=== PATIENT | female | born 1990 | race Two or more races ===

== ENCOUNTER 2020-03-26 21:32 | Emergency (ER) | payer MEDICAID, OTHER ==
[~2020-03-26] VITALS: Ht 170.2 cm; Wt 65.8 kg
--- NOTE | 2020-03-26 21:45 | NUR ---
ED Nurse Note: Patient walked in from home d/t spider bite on left ankle that occurred 3 days ago. Patient aao x 4 and ambulatory with steady gait. Patient reports tingling on left side. No acute distress noted.
--- NOTE | 2020-03-26 22:02 | NUR ---
ED Nurse Note: ERMD at bedside.
--- NOTE | 2020-03-26 22:05 | NUR ---
HAND-OFF: Report given to DEV Kennedy.
[2020-03-26] MEDS ORDERED: Clindamycin 600mg 50 ML IVPB ONE (22:15)
--- NOTE | 2020-03-26 22:15 | NUR ---
ED Nurse Note: IV started in LAC, abx running per ERMD orders
[2020-03-26] MEDS ORDERED: CEPHALEXIN500 MG ORAL (22:56)
[2020-03-26] MEDS ORDERED: BACTRIM DS TAB1 EAC1 ORAL (22:56)
[2020-03-26] MEDS ORDERED: Lidocaine 1% MPF 10mg/ml 5ml ONE (22:57)
--- NOTE | 2020-03-26 22:57 | Emergency Room Report ---
History of Present Illness General Chief Complaint: Lower Extremity Injury Source: Patient Present Illness HPI This a 29-year-old female with no past medical history. She presents with 2 complaints. Her main complaint was possible bug bite to her left ankle. She noticed some itching and redness that seem to be spreading for the last 2 days. No fever chills but no nausea no vomiting but did not see anything biting her. Localized in the left lateral ankle. Worse with movement. Better with rest. Her second complaint is possible STD. This complaint was verbalized as I was discharging her. She said she has a slight discharge after "looking up" with a josé luis she knew a month ago. She said she had chlamydia from him before. She denies any nausea vomiting. Denies any fever chills. Said is similar to previous chlamydia infection. Allergies: Coded Allergies: No Known Allergies (Unverified , 03/26/20) COVID-19 Screening Contact w/high risk pt: No Recent Travel to affected area: No Experienced COVID-19 symptoms?: No Patient History Past Medical History: none, see triage record, old chart reviewed Past Surgical History: none Pertinent Family History: none Social History: Denies: smoking Last Menstrual Period: 03/18/20 Now: No : 1 Para: 1 Immunizations: other Reviewed Nursing Documentation: PMH: Agreed; PSxH: Agreed Nursing Documentation-PMH Past Medical History: No Stated History Review of Systems Eye: Denies: eye pain, blurred vision ENT: Denies: ear pain, nose congestion, throat swelling Respiratory: Denies: cough, shortness of breath Cardiovascular: Denies: chest pain, palpitations Gastrointestinal: Denies: abdominal pain, diarrhea, nausea, vomiting Genitourinary: Reports: vag bleed/dc Musculoskeletal: Denies: back pain, joint pain Skin: Reports: rash Neurological: Denies: headache, numbness Endocrine: Denies: increased thirst, increased urine Hematologic/Lymphatic: Denies: easy bruising All Other Systems: negative except mentioned in HPI Physical Exam Vital Signs Date Time Temp Pulse Resp B/P (MAP) Pulse Ox O2 Delivery O2 Flow Rate FiO2 03/26/20 21:37 97.9 77 20 104/62 (76) 99 Room Air Vitals normal Sp02 EP Interpretation: reviewed, normal General Appearance: well appearing, no apparent distress, alert Head: normocephalic, atraumatic Eyes: bilateral eye PERRL, bilateral eye EOMI ENT: hearing grossly normal, normal pharynx Neck: full range of motion, supple, no meningismus Respiratory: chest non-tender, lungs clear, normal breath sounds Cardiovascular #1: regular rate, rhythm, no murmur Gastrointestinal: normal bowel sounds, non tender, no mass, no organomegaly, no bruit, non-distended Musculoskeletal: back normal, normal range of motion, gait/station normal, other - Left lateral ankle with about 4 x 4 cm area of erythema. No crepitance. Full range of motion of the ankle. No fluctuant. Psychiatric: mood/affect normal Medical Decision Making Diagnostic Impression: Primary Impression: Cellulitis of left ankle Additional Impression: Acute cervicitis ER Course Patient with cellulitis of her left ankle. No evidence of necrotizing fasciitis or abscess. Antibiotics given here. She also has possible STD. Cover for gonorrhea and chlamydia. Recommend outpatient testing for HIV, hepatitis, syphilis and other STDs. Last Vital Signs Date Time Temp Pulse Resp B/P (MAP) Pulse Ox O2 Delivery O2 Flow Rate FiO2 03/26/20 21:37 97.9 77 20 104/62 (76) 99 Room Air Status: improved Disposition: HOME, SELF-CARE Condition: Stable Scripts Cephalexin* (KEFLEX*) 500 Mg Capsule 500 MG ORAL TID, #21 CAP Prov: Riccardo Pabon MD 03/26/20 Trimethoprim/Sulfamethoxazole 160/800* (BACTRIM DS TABLET*) 1 Each Tablet 1 TAB ORAL Q12H, #14 TAB 0 Refills Prov: Riccardo Pabon MD 03/26/20 Referrals: NOT CHOSEN IPA/,REFERRING (PCP) Additional Instructions: Follow-up with your doctor in 7 days for recheck. Return if redness increases significantly, having fever, or increasing swelling. Recommend outpatient testing for HIV, hepatitis, syphilis and other STDs. Recommend having your partner treated also. Return if symptoms worsen. Riccardo Pabon MD March 26, 2020 22:57
[2020-03-26] MEDS ORDERED: Azithromycin 250mg tab ORAL ONE (23:00)
[2020-03-26 23:06] VITALS: BP 104/62
--- NOTE | 2020-03-26 23:06 | NUR ---
ER DISCHARGE NOTE: Patient is cleared to be discharged per ERMD, pt is aox4, on room air, with stable vital signs. pt was given dc and prescription instructions, pt was able to verbalize understanding, pt id band and iv site removed without complications. pt is able to ambulate with steady gait. pt took all belongings.
== END 2020-03-26 23:06 | disposition home or self-care (01) ==
LOC: EMR 21:55
DX: L03.116 Cellulitis of left lower limb (principal); N72 Inflammatory disease of cervix uteri
CPT/HCPCS: 96365; 96375; J0696; Q0144; Z7502; 99284; S0077

== ENCOUNTER 2020-04-25 19:49 | Emergency (ER) | payer OTHER ==
[~2020-04-25] VITALS: Ht 170.2 cm; Wt 63.5 kg
[~2020-04-25 19:49] MED LIST: BACTRIM DS TAB1 EAC1 ORAL; CEPHALEXIN500 MG ORAL
[2020-04-25 20:38] VITALS: BP 111/72
--- NOTE | 2020-04-25 21:30 | Emergency Room Report ---
History of Present Illness General Chief Complaint: Lower Extremity Injury Source: Patient (Guzman oG M.D.) Present Illness HPI 29-year-old female presents with left lower extremity pain and swelling. She is noted pain and swelling for the past couple of days. She was seen 1 month ago for the same, diagnosed with cellulitis, started on Keflex and Bactrim which did improve her symptoms however now they have returned. No fevers nausea or vomiting. Pain is 8 out of 10 aching in nature, nonradiating. (Guzman Go M.D.) Allergies: Coded Allergies: No Known Allergies (Unverified , 03/26/20) COVID-19 Screening Contact w/high risk pt: No Recent Travel to affected area: No Experienced COVID-19 symptoms?: No COVID-19 Testing performed PROBATION OFFICER: No (Guzman Go M.D.) Patient History Last Menstrual Period: 04/25/20 Now: No : 1 Para: 1 Reviewed Nursing Documentation: PMH: Agreed; PSxH: Agreed (Guzman Go M.D.) Nursing Documentation-PMH Past Medical History: No Stated History (Guzman Go M.D.) Review of Systems All Other Systems: negative except mentioned in HPI (Guzman Go M.D.) Physical Exam Vital Signs Date Time Temp Pulse Resp B/P (MAP) Pulse Ox O2 Delivery O2 Flow Rate FiO2 04/25/20 20:28 98.6 76 18 111/72 (85) 98 Room Air Sp02 EP Interpretation: reviewed, normal General Appearance: well appearing, no apparent distress Head: normocephalic, atraumatic Eyes: bilateral eye PERRL, bilateral eye EOMI ENT: hearing grossly normal, moist mucus membranes Neck: full range of motion, supple Respiratory: lungs clear, normal breath sounds, no rhonchi, no respiratory distress, no retraction, no wheezing Cardiovascular #1: normal peripheral pulses, regular rate, rhythm, no murmur Gastrointestinal: non tender, soft, non-distended, no guarding Musculoskeletal: other - Left lower extremity with swelling and erythema noted , 2+ pulses palpated, mildly tender, no deformity noted. No purulence. Mild calf tenderness on left Neurologic: alert, oriented x3, no focal defects Skin: normal color, warm/dry (Guzman Go M.D.) Medical Decision Making Diagnostic Impression: Primary Impression: Cellulitis Qualified Codes: L03.119 - Cellulitis of unspecified part of limb ER Course MDM: Differential included but not limited to recurrent cellulitis, DVT, dependent edema to name a few Clinical course-ultrasound ordered to evaluate for DVT. Patient's exam did appear to have mild cellulitis. She was treated successfully with Keflex and Bactrim previously. She does not take control no recent long travel however due to recurrent swelling and pain I did order the ultrasound. Labs - On reevaluation: Plan- (Guzman Go M.D.) ER Course Patient signed out to me. She presents with cellulitis of her lower extremity. She had an ultrasound pending to make sure there is no DVT. Ultrasound is negative. Patient be discharged home per Dr. Go's instructions. (Riccardo Pabon MD) CT/MRI/US Diagnostic Results CT/MRI/US Diagnostic Results : Imaging Test Ordered: Ultrasound left lower extremity Impression Per telemarketing sales representative neg. (Riccardo Pabon MD) Last Vital Signs Date Time Temp Pulse Resp B/P (MAP) Pulse Ox O2 Delivery O2 Flow Rate FiO2 04/25/20 20:28 98.6 76 18 111/72 (85) 98 Room Air (Guzman Go M.D.) Status: improved (Riccardo Pabon MD) Disposition: HOME, SELF-CARE Condition: Stable Scripts Cephalexin* (KEFLEX*) 500 Mg Capsule 500 MG ORAL TID, #21 CAP Prov: Guzman Go M.D. 04/25/20 Trimethoprim/Sulfamethoxazole 160/800* (BACTRIM DS TABLET*) 1 Each Tablet 1 TAB ORAL Q12H, #14 TAB 0 Refills Prov: Guzman Go M.D. 04/25/20 Referrals: NON PHYSICIAN (PCP) Guzman Go M.D. Apr 25, 2020 21:30 Riccardo Pabon MD Apr 25, 2020 23:31
[2020-04-25 22:14] VITALS: BP 116/76
[2020-04-25] MEDS ORDERED: CEPHALEXIN500 MG ORAL (22:25)
[2020-04-25] MEDS ORDERED: BACTRIM DS TAB1 EAC1 ORAL (22:25)
[2020-04-25 23:33] VITALS: BP 123/79
--- NOTE | 2020-04-26 09:16 | Diagnostic Imaging Report ---
EXAM: ULTRASOUND Venous Duplex Lower Ext Uni CLINICAL HISTORY: Leg pain and edema. COMPARISON: None TECHNIQUE: Doppler examination include grayscale images obtained with and without compression, and color and spectral doppler analysis. FINDINGS: Doppler examination shows normal spontaneity, phasicity, compressibility in the left lower extremity. There is no thrombus identified by grayscale. Normal color and spectral flow is identified. There is no evidence of valvular incompetency or insufficiency. IMPRESSION: UNREMARKABLE VENOUS DUPLEX.
== END 2020-04-25 23:33 | disposition home or self-care (01) ==
LOC: EMR 21:00
DX: L03.119 Cellulitis of unspecified part of limb (principal)
CPT/HCPCS: 93971; Z7502; 99284